=== PATIENT | male | born 1955 | race Caucasian/White ===

== ENCOUNTER 2016-11-06 09:02 | Day surgery (SDC) | payer MEDICARE, OTHER ==
[~2016-11-06 09:02] MED LIST: PROPOFOL INJ 200 MG/20 ML VIAL IV ONE
[2016-11-06 10:13] VITALS: BP 121/60
--- NOTE | 2016-11-06 11:41 | Operative Report ---
Operative Report DATE OF SURGERY: 11/06/16 Operative Report: The risks benefits and alternatives of the procedure explained to the patient in detail and informed consent is obtained that GIF Olympus video scope was inserted into the patient's mouth and hypopharynx the esophagus is identified intubated and insufflated the scope was then advanced through the esophagus stomach and duodenum retroflexion maneuver is done the esophagus stomach and first and second portions of the duodenum examined PREOPERATIVE DIAGNOSIS: Rectal bleeding. Patient originally scheduled to have colonoscopy done today but did not drink the prep. He will need to be rescheduled. Known history of Wright's esophagus. We'll proceed with EGD today. POSTOPERATIVE DIAGNOSIS: Wright's esophagus status post ablation. Gastritis OPERATION: EGD with ablation. EGD with biopsy SURGEON: ADIA CHRISTOPHER ANESTHESIA: LMAC TISSUE REMOVED OR ALTERED: Gastric mucosal specimen obtained rule out Helicobacter pylori COMPLICATIONS: None. ESTIMATED BLOOD LOSS: none. INTRAOPERATIVE FINDINGS: As described above. PROCEDURE: Patient tolerated procedure well. No immediate postprocedure complications are noted. Patient is discharged in good condition. Discharge diet: Regular. Discharge activity: Regular. Discharge date 11/06/2016. We'll need to reschedule for his colonoscopy. Patient is instructed to call the office or proceed to the emergency room should there be any further problems or questions
== END 2016-11-06 10:08 | disposition home or self-care (01) ==
LOC: END 09:02
PROVIDERS: ATTEND Internal Medicine Gastroenterology
PROC: 0DB68ZX Excision of Stomach, Via Natural or Artificial Opening Endoscopic, Diagnostic (ICD-10-PCS; principal; 2016-11-06 10:00)
PROC: 0D558ZZ Destruction of Esophagus, Via Natural or Artificial Opening Endoscopic (ICD-10-PCS; 2016-11-06 10:00)
DX: K22.719 Barrett's esophagus with dysplasia, unspecified (principal); K62.5 Hemorrhage of anus and rectum; I25.10 Atherosclerotic heart disease of native coronary artery without angina pectoris; M19.90 Unspecified osteoarthritis, unspecified site; D64.9 Anemia, unspecified; J45.909 Unspecified asthma, uncomplicated; K29.50 Unspecified chronic gastritis without bleeding; D69.3 Immune thrombocytopenic purpura; N40.1 Benign prostatic hyperplasia with lower urinary tract symptoms; Z79.51 Long term (current) use of inhaled steroids; Z79.899 Other long term (current) drug therapy; Z88.6 Allergy status to analgesic agent; Z88.5 Allergy status to narcotic agent; Z88.8 Allergy status to other drugs, medicaments and biological substances; I25.2 Old myocardial infarction
CPT/HCPCS: 43239; 43270; 740; 88305; J2704

== ENCOUNTER 2016-11-27 07:06 | Day surgery (SDC) | payer MEDICARE, OTHER ==
[2016-11-27] MEDS ORDERED: PROPOFOL INJ 200 MG/20 ML VIAL IV ONE (07:23)
[2016-11-27 09:58] VITALS: BP 124/75
--- NOTE | 2016-11-27 13:37 | Operative Report ---
Operative Report DATE OF SURGERY: 11/27/16 Operative Report: The risks, benefits and alternatives of the procedure including risks of bleeding, perforation requiring surgery are explained to the patient in detail and informed consent was obtained. Patient was taken back to the endoscopy suite and placed in the left, lateral decubital position. Rectal examination was done which did not reveal any masses tenderness or fissures. Timeout was called. Propofol medications administered. An Olympus endoscope was inserted into the patient's rectum. The scope was then gradually advanced all the way to the cecum. The cecum was identified by the usual anatomical landmarks including the ileocecal valve as well as appendiceal office. Photodocumentation was obtained. Prep was reasonably good. The scope was then sequentially pulled back the interventions of the colon including the ascending colon, hepatic flexure, transverse colon, splenic flexure, descending colon and finally to the rectosigmoid portions of the colon. Retroflexion maneuver was performed. PREOPERATIVE DIAGNOSIS: Rectal bleeding. Colorectal cancer screening POSTOPERATIVE DIAGNOSIS: Internal hemorrhoids. Cecal polyp noted and removed via snare polypectomy and retrieved. No AVMs, diverticulosis noted OPERATION: Colonoscopy with snare polypectomy SURGEON: ADIA CHRISTOPHER ANESTHESIA: LMAC TISSUE REMOVED OR ALTERED: Colon polyp retrieved COMPLICATIONS: None. ESTIMATED BLOOD LOSS: None. INTRAOPERATIVE FINDINGS: As described above. PROCEDURE: Patient tolerated procedure well. No immediate postprocedure complications are noted. Patient discharged in good condition. Discharge date 11/27/2016. Discharge diet: Regular. Discharge activity: Regular. 2-3 week follow-up to discuss findings. Patient is instructed to call the office or proceed to the emergency room should there be any further problems or questions. 5 year surveillance colonoscopy. We will wait on pathology.
== END 2016-11-27 09:55 | disposition home or self-care (01) ==
LOC: END 07:06
PROVIDERS: ATTEND Internal Medicine Gastroenterology
PROC: 0DBH8ZX Excision of Cecum, Via Natural or Artificial Opening Endoscopic, Diagnostic (ICD-10-PCS; principal; 2016-11-27 09:30)
DX: D12.0 Benign neoplasm of cecum (principal); K64.8 Other hemorrhoids; E66.9 Obesity, unspecified; K62.5 Hemorrhage of anus and rectum; K21.9 Gastro-esophageal reflux disease without esophagitis; J45.909 Unspecified asthma, uncomplicated; D64.9 Anemia, unspecified; M19.90 Unspecified osteoarthritis, unspecified site; I10 Essential (primary) hypertension; I49.9 Cardiac arrhythmia, unspecified; I25.10 Atherosclerotic heart disease of native coronary artery without angina pectoris; Z79.899 Other long term (current) drug therapy; Z79.51 Long term (current) use of inhaled steroids; Z79.84 Long term (current) use of oral hypoglycemic drugs; Z88.6 Allergy status to analgesic agent; Z88.8 Allergy status to other drugs, medicaments and biological substances; Z87.891 Personal history of nicotine dependence; I25.2 Old myocardial infarction; Z68.35 Body mass index [BMI] 35.0-35.9, adult
CPT/HCPCS: 45385; 88305 ×2; J2704; 810

== ENCOUNTER → 2017-06-08 | Outpatient (CLI) | payer MEDICARE, OTHER ==
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
== END ==
LOC: RAD 10:24
PROVIDERS: ATTEND Physician Assistant Medical
DX: R55 Syncope and collapse (principal); R51 Headache; V89.2XXA Person injured in unspecified motor-vehicle accident, traffic, initial encounter; Y93.9 Activity, unspecified; Y92.9 Unspecified place or not applicable; Y99.9 Unspecified external cause status
CPT/HCPCS: 70450

== ENCOUNTER → 2017-10-01 | Outpatient (CLI) | payer MEDICARE, OTHER ==
--- NOTE | 2017-10-01 14:13 | RADIOLOGY REPORT (SQ) ---
EXAM DESCRIPTION: SHOULDER BILAT 2 OR MORE VIEWS COMPLETED DATE/TIME: 10/01/2017 12:16 pm REASON FOR STUDY: CHRONIC PAIN OF BOTH SHOULDERS M25.511 PAIN IN RIGHT SHOULDER R63.4 ABNORMAL WILY GHT LOSS COMPARISON: None. NUMBER OF VIEWS: Six views. TECHNIQUE: Internal rotation, external rotation, and Y view images acquired of the right and left sh oulder. LIMITATIONS: None. FINDINGS: Orthopedic screw in the left humeral head. Advanced glenohumeral joint arthropathy on the left. Less severe arthropathy in the right glenohumeral joint. Moderate AC joint arthropathy bilat erally. IMPRESSION: AC and glenohumeral joint arthropathy. TECHNICAL DOCUMENTATION: JOB ID: [id number] [employer]- All Rights Reserved Reading location - IP/workstation name: [email or web address]
--- NOTE | 2017-10-01 14:14 | RADIOLOGY REPORT (SQ) ---
EXAM DESCRIPTION: CHEST PA/LAT COMPLETED DATE/TIME: 10/01/2017 12:16 pm REASON FOR STUDY: WEIGHT LOSS COMPARISON: 11/11/2015 EXAM PARAMETERS: NUMBER OF VIEWS: two views TECHNIQUE: Digital Frontal and Lateral radiographic views of the chest acquired. RADIATION DOSE: NA LIMITATIONS: none FINDINGS: LUNGS AND PLEURA: Stable scarring in the lingula. No pleural effusion. MEDIASTINUM AND HILAR STRUCTURES: No masses or contour abnormalities. HEART AND VASCULAR STRUCTURES: Heart normal size. No evidence for failure. BONES: No acute findings. HARDWARE: None in the chest. OTHER: No other significant finding. IMPRESSION: NO ACUTE RADIOGRAPHIC FINDING IN THE CHEST. TECHNICAL DOCUMENTATION: JOB ID: [id number] [employer]- All Rights Reserved Reading location - IP/workstation name: [email or web address]
== END ==
LOC: RAD 11:49
PROVIDERS: ATTEND Family Medicine
DX: M25.511 Pain in right shoulder (principal); R63.4 Abnormal weight loss; M12.812 Other specific arthropathies, not elsewhere classified, left shoulder
CPT/HCPCS: 71046